=== PATIENT | male | born 1965 | race Caucasian/White ===

== ENCOUNTER 2018-04-01 07:51 | Day surgery (SDC) | payer OTHER ==
[~2018-04-01] VITALS: Ht 180.3 cm; Wt 70.3 kg
[~2018-04-01 07:51] MED LIST: CHANTIX1 EACH PO
--- NOTE | 2018-04-01 09:16 | NUR ---
04/01/18 0916 Arianne Zepeda 0905-PATIENT ARRIVED TO PACU ON 2L NC PATIENT REACTIVE TO VOICE SLIGHTLY OPENS EYES. RR EVEN. ABDOMEN SOFT. PASSING GAS. 0915-PATIENT APNEIC AT TIMES AROUSING TO VERBAL STIMULI ENCOURAGED TO TAKE DEEP BREATHES. 2L NC 99%
--- NOTE | 2018-04-02 06:22 | OR ---
[facility] [address] [place], [place] [address] Signed DATE OF OPERATION: 04/01/2018 SURGEON: Sukhdev Beard MD PREOPERATIVE DIAGNOSIS: Change in bowel habits with constipation and rectal pain. POSTOPERATIVE DIAGNOSIS: Mildly enlarged and indurated prostate gland (left greater than right). PROCEDURE PERFORMED: Colonoscopy without biopsy. ESTIMATED BLOOD LOSS: None. INDICATIONS: Lalit is a 52-year-old gentleman who was asked to see me for a colonoscopy. He describes a change in bowel habits with pain in his rectum with bowel movements. He said he has had some constipation. 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 One particular horse was pretty rough and he felt some pain on his inner legs. He said that pain continues to come and go. There is something called perineal pain syndrome. It could apply to him since he has been riding horses his whole life. He said there is no family history of colon cancer or polyps. Lalit never had a previous colonoscopy. I gave Lalit a pamphlet on colonoscopy in the office and I reviewed that with him in detail. He understands the nature of the test along with the risks including, but not limited to gas, bloating, crampy abdominal pain, bleeding, perforation, requiring surgery, and missed diagnosis. He also understands the need for IV conscious sedation. He expressed understanding and wished to proceed. PROCEDURE NOTE: Lalit was taken into our endoscopy suite and placed in the left lateral decubitus position. He was given IV sedation with 5 mg of Versed and 100 mcg of fentanyl. A digital rectal exam was performed and he does not seem to have any external hemorrhoids. He has good sphincter tone. There was no spasm to the levators. I did not specifically see the fissure today. His prostate is mildly enlarged, but it is moderately indurated and the left is slightly larger than the right. The adult colonoscope was then introduced and advanced all the way around into the cecum under direct visualization of camera without difficulty. His prep was good. The scope was then slowly withdrawn. We took pictures throughout for photodocumentation. We saw no Electronically Signed By: SUKHDEV BEARD MD 04/02/18 0622 PATIENT NAME: LALIT MICHELLE OPERATIVE REPORT DATE OF : 65 REPORT #: [id number] PHYSICIAN: SUKHDEV BEARD MD PCP: SARA FLYNN DO REPORT IS CONFIDENTIAL AND NOT TO BE RELEASED WITHOUT AUTHORIZATION [facility] [address] [place], [place] [address] Signed pathology throughout the entire colon or rectum. Upon retroflexion of scope, he has just a tiny internal anal skin tag. After this, the gas was suctioned out and the colonoscope removed. Lalit tolerated the procedure quite well. RECOMMENDATIONS: I will see Lalit back in my office in 7 to 14 days to review his results. He should undergo anoscopy in the office. If that is negative, he might need some additional advanced testing. MD ROBIN Nicholson/ALANL /[id number] cc: Genna Beard MD Copies: SUKHDEV BEARD MD ~ Electronically Signed By: SUKHDEV BEARD MD 04/02/18 0622 PATIENT NAME: LALIT MICHELLE OPERATIVE REPORT DATE OF : 65 REPORT #: [id number] PHYSICIAN: SUKHDEV BEARD MD PCP: SARA FLYNN DO REPORT IS CONFIDENTIAL AND NOT TO BE RELEASED WITHOUT AUTHORIZATION
== END 2018-04-01 10:05 | disposition home or self-care (01) ==
LOC: OPS 07:51 → DS 07:51 → OPS 09:00 → DS 09:00 → OPS 10:05
PROVIDERS: Colon & Rectal Surgery
PROC: 0DJD8ZZ Inspection of Lower Intestinal Tract, Via Natural or Artificial Opening Endoscopic (ICD-10-PCS; principal; 2018-04-01 09:00)
DX: K64.4 Residual hemorrhoidal skin tags (principal); K59.00 Constipation, unspecified; K62.89 Other specified diseases of anus and rectum; N40.0 Benign prostatic hyperplasia without lower urinary tract symptoms; F17.210 Nicotine dependence, cigarettes, uncomplicated; Z79.899 Other long term (current) drug therapy
CPT/HCPCS: G0500; J2250; J3010; J7120

== ENCOUNTER 2021-06-28 19:43 | Emergency (ER) | payer OTHER ==
[~2021-06-28] VITALS: Ht 182.9 cm; Wt 72.6 kg
[2021-06-29] MEDS ORDERED: HYDROCODON-ACE1 EA10 PO (00:43)
== END 2021-06-29 02:11 | disposition home or self-care (01) ==
LOC: ED 19:43
DX: S42.302A Unspecified fracture of shaft of humerus, left arm, initial encounter for closed fracture (principal); S42.292A Other displaced fracture of upper end of left humerus, initial encounter for closed fracture; S52.501A Unspecified fracture of the lower end of right radius, initial encounter for closed fracture; W55.12XA Struck by horse, initial encounter; F17.200 Nicotine dependence, unspecified, uncomplicated; Z20.822 Contact with and (suspected) exposure to COVID-19
CPT/HCPCS: 36415; 70450; 71260; 72125; 73060; 73110; 74177; 80053; 81001; 82150; 82553; 83605; 83690; 85025; 87502; 99284-25; A9270; C9803; G0480; J1170; J2405; J7030; Q9967; U0003